=== PATIENT | male | born 1960 | race Caucasian/White ===

== ENCOUNTER 2019-07-29 16:55 | Inpatient (IN) | payer BC ==
[~2019-07-29] VITALS: Ht 193 cm; Wt 104.5 kg
[2019-07-29] MEDS ORDERED: proCHLORperazine 10 MG/2 ml inj IV ONE (17:10)
[2019-07-29] MEDS ORDERED: LORazepam 2 mg/ml vial IV ONE (17:10)
[2019-07-29] MEDS ORDERED: normal saline 1000ML IV soln IVB ONE (17:10)
[2019-07-29 17:43] LABS: BASOPHILS % (AUTO) 0.1 % (0-1); EOSINOPHILS % (AUTO) 0.1 % (0-6); HEMATOCRIT 48.2 % (42.0-52.0); HEMOGLOBIN 16.5 g/dl (14.0-17.9); LYMPHOCYTES # (AUTO) 0.6 X10'3 (1.1-4.8); MEAN CORPUSCULAR HEMOGLOBIN 31.5 PG (27.0-31.0); MEAN CORPUSCULAR HGB CONC 34.2 g/dL (33.0-36.5); MEAN CORPUSCULAR VOLUME 92.2 FL (78-98); MEAN PLATELET VOLUME 8.3 FL (7.4-10.4); MONOCYTES # (AUTO) 0.4 X10'3 (0-0.9); MONOCYTES % (AUTO) 3.6 % (2-12); NEUTROPHILS # (AUTO) 9.1 X10'3 (1.8-7.7); NEUTROPHILS % (AUTO) 90.2 % (42-75); PLATELET COUNT 148 X10'3 (140-440); RED BLOOD COUNT 5.22 X10'6 (4.70-6.10); RED CELL DISTRIBUTION WIDTH 12.5 % (11.5-14.5); WHITE BLOOD COUNT 10.1 X10'3 (4.5-11.0)
[2019-07-29 17:50] LABS: ALANINE AMINOTRANSFERASE 55 U/L (12-78); ALBUMIN 4.4 G/DL (3.4-5.0); ALBUMIN/GLOBULIN RATIO 1.4 (1.1-1.5); ALKALINE PHOSPHATASE 73 IU/L (46-116); ANION GAP 11 (8-16); ASPARTATE AMINO TRANSFERASE 30 U/L (10-37); BILIRUBIN,TOTAL 1.5 MG/DL (0.1-1.0); BLOOD UREA NITROGEN 24 MG/DL (7-18); BUN/CREATININE RATIO 20.7 (5.4-32.0); CALCIUM 9.5 MG/DL (8.5-10.1); CHLORIDE 108 MMOL/L (99-107); CREATININE 1.16 MG/DL (0.60-1.10); GLUCOSE 177 MG/DL (70-104); POTASSIUM 3.9 MMOL/L (3.5-5.1); SODIUM 145 MMOL/L (135-145); TOTAL PROTEIN 7.5 G/DL (6.4-8.2); eGFR 64 ML/MIN
[2019-07-29] MEDS ORDERED: meclizine 12.5mg tablet PO ONE (18:25)
[2019-07-29] MEDS ORDERED: iohexol 350MG/ML 100ml bottle IV ONE (19:14)
[2019-07-29] MEDS ORDERED: scopolamine 1.5mg patch.TD72 TD ONE (19:30)
[2019-07-29] MEDS ORDERED: aspirin 325mg tablet PO ONE (19:30)
[2019-07-29] MEDS ORDERED: NO HOME MEDS (20:19)
[2019-07-29] MEDS ORDERED: ondansetron/PF 4mg/2ml inj IV ONE (21:35)
[2019-07-29] MEDS ORDERED: magnesium hydroxide 30ml (MOM) UD suspension PO PRN (22:55)
[2019-07-29] MEDS ORDERED: acetaminophen 325mg tablet PO PRN (22:55)
[2019-07-29] MEDS ORDERED: mag hydrox/Alum hydrox/simeth 30ml oral suspension PO PRN (22:55)
[2019-07-29] MEDS ORDERED: ondansetron/PF 4mg/2ml inj IV PRN (22:55)
[2019-07-29] MEDS ORDERED: meclizine 12.5mg tablet PO PRN (23:00)
[2019-07-29] MEDS ORDERED: LORazepam 2 mg/ml vial IV PRN (23:00)
--- NOTE | 2019-07-29 23:36 | NUR ---
I have received report from Felicita, ED RN and had the opportunity to ask questions and assume patient care.
[2019-07-30 00:07] VITALS: BP 131/79
[2019-07-30 05:48] LABS: BASOPHILS % (AUTO) 0.1 % (0-1); EOSINOPHILS % (AUTO) 0.1 % (0-6); HEMATOCRIT 46.3 % (42.0-52.0); HEMOGLOBIN 15.6 g/dl (14.0-17.9); LYMPHOCYTES # (AUTO) 1.2 X10'3 (1.1-4.8); LYMPHOCYTES % (AUTO) 12.5 % (21-51); MEAN CORPUSCULAR HEMOGLOBIN 31.5 PG (27.0-31.0); MEAN CORPUSCULAR HGB CONC 33.6 g/dL (33.0-36.5); MEAN CORPUSCULAR VOLUME 93.6 FL (78-98); MEAN PLATELET VOLUME 8.5 FL (7.4-10.4); MONOCYTES # (AUTO) 0.9 X10'3 (0-0.9); MONOCYTES % (AUTO) 9.9 % (2-12); NEUTROPHILS # (AUTO) 7.3 X10'3 (1.8-7.7); NEUTROPHILS % (AUTO) 77.4 % (42-75); PLATELET COUNT 151 X10'3 (140-440); RED BLOOD COUNT 4.95 X10'6 (4.70-6.10); RED CELL DISTRIBUTION WIDTH 12.5 % (11.5-14.5); WHITE BLOOD COUNT 9.4 X10'3 (4.5-11.0)
[2019-07-30 06:01] LABS: ALANINE AMINOTRANSFERASE 49 U/L (12-78); ALBUMIN 3.9 G/DL (3.4-5.0); ALBUMIN/GLOBULIN RATIO 1.3 (1.1-1.5); ALKALINE PHOSPHATASE 62 IU/L (46-116); ANION GAP 8 (8-16); ASPARTATE AMINO TRANSFERASE 26 U/L (10-37); BILIRUBIN,TOTAL 1.2 MG/DL (0.1-1.0); BLOOD UREA NITROGEN 25 MG/DL (7-18); BUN/CREATININE RATIO 23.6 (5.4-32.0); CALCIUM 9.2 MG/DL (8.5-10.1); CHLORIDE 108 MMOL/L (99-107); CREATININE 1.06 MG/DL (0.60-1.10); GLUCOSE 118 MG/DL (70-104); POTASSIUM 4.4 MMOL/L (3.5-5.1); SODIUM 143 MMOL/L (135-145); TOTAL CARBON DIOXIDE 27.5 MMOL/L (24-32); TOTAL PROTEIN 6.9 G/DL (6.4-8.2); eGFR 72 ML/MIN
--- NOTE | 2019-07-30 06:05 | NUR ---
Patient in room [id number]. I have received report from NOHEMY Velazquez and had the opportunity to ask questions and assume patient care.
[2019-07-30 06:30] VITALS: BP 116/79
--- NOTE | 2019-07-30 06:31 | NUR ---
Problems reprioritized. Patient report given, questions answered & plan of care reviewed with NOHEMY Ortiz.
[2019-07-30] MEDS ORDERED: heparin, porcine 5000 units/ml vial SQ SCH (08:00)
[2019-07-30] MEDS ORDERED: scopolamine 1.5mg patch.TD72 TD ONE (10:05)
[2019-07-30 11:00] VITALS: BP 134/80
[2019-07-30] MEDS ORDERED: MECL-183 PO (13:59)
[2019-07-30] MEDS ORDERED: SCOP1PAT11 TOP (13:59)
[2019-07-30] MEDS ORDERED: ONDA4TAB6 PO (13:59)
--- NOTE | 2019-07-30 16:15 | NUR ---
DC inst provided to pt & pt's , Soraida. IV DC'd, tip intact. All belongings sent w/pt. WC to front lobby.
== END 2019-07-30 16:15 | disposition home or self-care (01) | DRG 149 ==
LOC: ER 16:56 → UNDOADMIN 22:54 → ED HOLD 22:54 → UNDOADMIN 23:00 → ED HOLD 23:00 → SUR 3N 23:55 → ED HOLD 23:55
PROVIDERS: ADMIT Internal Medicine; ATTEND Internal Medicine
PROC: B3281ZZ Computerized Tomography (CT Scan) of Bilateral Internal Carotid Arteries using Low Osmolar Contrast (ICD-10-PCS; principal; 2019-07-29)
DX: H81.10 Benign paroxysmal vertigo, unspecified ear (principal); E11.9 Type 2 diabetes mellitus without complications; E78.00 Pure hypercholesterolemia, unspecified; E78.5 Hyperlipidemia, unspecified; Z87.442 Personal history of urinary calculi
CPT/HCPCS: 36415; 70450; 70496; 70498; 71045; 80053; 83735; 84484; 85025; 87081; 93005; 97161; 97530; 99285; G0378; J0780; J2060; J7030; J8597; Q9967